=== PATIENT | female | born 1950 | race Caucasian/White ===

== ENCOUNTER 2017-12-28 14:15 | Outpatient (CLI) | payer OTHER | END 2017-12-28 14:31 | disposition home or self-care (01) | LOC: TOM 14:15 | DX: F01.50 Vascular dementia, unspecified severity, without behavioral disturbance, psychotic disturbance, mood disturbance, and anxiety (principal) ==

== ENCOUNTER 2018-01-03 10:44 | Outpatient (CLI) | payer OTHER | END 2018-01-03 10:57 | disposition home or self-care (01) | LOC: NUCLEAR 10:44 | DX: I65.23 Occlusion and stenosis of bilateral carotid arteries (principal) ==

== ENCOUNTER 2018-06-17 13:44 | Outpatient (CLI) | payer OTHER | END 2018-06-17 14:17 | disposition home or self-care (01) | LOC: NUCLEAR 13:44 | DX: M81.0 Age-related osteoporosis without current pathological fracture (principal) ==

== ENCOUNTER 2019-02-06 14:07 | Outpatient (CLI) | payer OTHER ==
[~2019-02-06] VITALS: Ht 165.1 cm; Wt 108.9 kg
== END 2019-02-06 14:25 | disposition home or self-care (01) ==
LOC: OFIC 805 14:07
DX: J32.8 Other chronic sinusitis (principal); R09.81 Nasal congestion; J34.89 Other specified disorders of nose and nasal sinuses; R68.89 Other general symptoms and signs; R05 Cough; R49.0 Dysphonia

== ENCOUNTER 2019-02-14 13:58 | Outpatient (CLI) | payer OTHER | END 2019-02-14 14:09 | disposition home or self-care (01) | LOC: TOM 13:58 | DX: J32.8 Other chronic sinusitis (principal) ==

== ENCOUNTER 2019-03-08 07:32 | Outpatient (CLI) | payer OTHER ==
[~2019-03-08] VITALS: Ht 152.4 cm; Wt 108.9 kg
== END 2019-03-08 13:51 | disposition home or self-care (01) ==
LOC: OFIC 805 07:32
DX: J34.2 Deviated nasal septum (principal); J31.0 Chronic rhinitis; J34.1 Cyst and mucocele of nose and nasal sinus; C44.40 Unspecified malignant neoplasm of skin of scalp and neck; E04.1 Nontoxic single thyroid nodule

== ENCOUNTER 2019-03-20 07:44 | Outpatient (CLI) | payer OTHER | END 2019-03-20 07:46 | disposition home or self-care (01) | LOC: SONOGRAMA 07:44 | DX: E04.1 Nontoxic single thyroid nodule (principal) ==

== ENCOUNTER 2019-04-26 11:08 | Outpatient (CLI) | payer OTHER | END 2019-04-26 12:28 | disposition home or self-care (01) | LOC: SONOGRAMA 11:08 | DX: E04.1 Nontoxic single thyroid nodule (principal) ==

== ENCOUNTER 2019-04-28 09:36 | Outpatient (CLI) | payer OTHER | END 2019-04-28 09:38 | disposition home or self-care (01) | LOC: TOM 09:36 | DX: E04.1 Nontoxic single thyroid nodule (principal); E03.8 Other specified hypothyroidism | CPT/HCPCS: 70491; Q9965 ==

== ENCOUNTER 2019-05-11 08:44 | Outpatient (CLI) | payer OTHER | END 2019-05-11 08:48 | disposition home or self-care (01) | LOC: RX STUDY 08:44 | DX: R13.19 Other dysphagia (principal); M72.2 Plantar fascial fibromatosis; E04.1 Nontoxic single thyroid nodule ==

== ENCOUNTER 2019-05-29 10:00 | Outpatient (CLI) | payer OTHER | END 2019-05-29 10:04 | disposition home or self-care (01) | LOC: NUCLEAR 10:00 | DX: I11.9 Hypertensive heart disease without heart failure (principal); I67.89 Other cerebrovascular disease; I73.9 Peripheral vascular disease, unspecified; I70.0 Atherosclerosis of aorta ==

== ENCOUNTER 2019-07-12 13:22 | Outpatient (CLI) | payer OTHER | END 2019-07-12 13:52 | disposition home or self-care (01) | LOC: RAD 13:22 | DX: M54.2 Cervicalgia (principal); M54.6 Pain in thoracic spine; M54.5 Low back pain ==

== ENCOUNTER 2019-08-10 14:39 | Outpatient (CLI) | payer OTHER ==
[~2019-08-10] VITALS: Ht 152.4 cm; Wt 110.2 kg
== END 2019-08-10 17:00 | disposition home or self-care (01) ==
LOC: OFIC 805 14:39
DX: J30.89 Other allergic rhinitis (principal); J32.8 Other chronic sinusitis; R09.81 Nasal congestion

== ENCOUNTER 2020-05-09 13:38 | Outpatient (CLI) | payer OTHER | END 2020-05-09 13:47 | disposition home or self-care (01) | LOC: MAMO-SONO 13:38 → SONOGRAMA 13:38 → MAMO-SONO 13:47 | DX: E04.2 Nontoxic multinodular goiter (principal); D44.0 Neoplasm of uncertain behavior of thyroid gland; Z12.31 Encounter for screening mammogram for malignant neoplasm of breast ==

== ENCOUNTER → 2020-05-13 | Outpatient (CLI) | payer OTHER | END | disposition home or self-care (01) | LOC: MRI 13:38 → SONOGRAMA 13:38 | PROVIDERS: ATTEND General Practice | DX: N60.02 Solitary cyst of left breast (principal); N60.01 Solitary cyst of right breast; N60.42 Mammary duct ectasia of left breast; Z12.31 Encounter for screening mammogram for malignant neoplasm of breast; N64.4 Mastodynia ==

== ENCOUNTER → 2020-12-26 12:06 | Outpatient (CLI) | payer OTHER | END | disposition home or self-care (01) | LOC: MAMO-SONO 05-09 13:45 → RAD 12:06 | PROVIDERS: ATTEND Physical Medicine & Rehabilitation | DX: M17.12 Unilateral primary osteoarthritis, left knee (principal); M54.2 Cervicalgia; M54.6 Pain in thoracic spine; M54.5 Low back pain ==

== ENCOUNTER 2021-05-21 09:13 | Outpatient (CLI) | payer OTHER | END 2021-05-21 09:14 | disposition home or self-care (01) | LOC: NUCLEAR 09:13 | PROVIDERS: ATTEND Internal Medicine Cardiovascular Disease | DX: I65.21 Occlusion and stenosis of right carotid artery (principal); G45.1 Carotid artery syndrome (hemispheric) ==

== ENCOUNTER 2021-06-03 11:09 | Outpatient (CLI) | payer OTHER | END 2021-06-03 11:20 | disposition home or self-care (01) | LOC: MAMO-SONO 11:09 | DX: N64.4 Mastodynia (principal); Z12.31 Encounter for screening mammogram for malignant neoplasm of breast; R22.1 Localized swelling, mass and lump, neck; E34.8 Other specified endocrine disorders ==

== ENCOUNTER 2021-06-03 13:47 | Outpatient (CLI) | payer OTHER | END 2021-06-03 13:51 | disposition home or self-care (01) | LOC: NUCLEAR 13:47 | PROVIDERS: ATTEND Internal Medicine Cardiovascular Disease | DX: M85.89 Other specified disorders of bone density and structure, multiple sites (principal); Z13.820 Encounter for screening for osteoporosis ==

== ENCOUNTER 2021-07-15 11:49 | Outpatient (CLI) | payer OTHER | END 2021-07-15 12:00 | disposition home or self-care (01) | LOC: LAB 11:49 | PROVIDERS: ATTEND Internal Medicine Cardiovascular Disease | DX: I11.9 Hypertensive heart disease without heart failure (principal) ==

== ENCOUNTER 2021-07-17 10:24 | Outpatient (CLI) | payer OTHER | END 2021-07-17 10:51 | disposition home or self-care (01) | LOC: TOM 10:24 | PROVIDERS: ATTEND Internal Medicine Cardiovascular Disease | DX: I67.89 Other cerebrovascular disease (principal); I11.9 Hypertensive heart disease without heart failure | CPT/HCPCS: 70498; Q9965; 71275 ==

== ENCOUNTER 2021-09-05 09:43 | Outpatient (CLI) | payer OTHER | END 2021-09-05 09:45 | disposition home or self-care (01) | LOC: NUCLEAR 09:43 | PROVIDERS: ATTEND Internal Medicine Cardiovascular Disease | DX: I73.9 Peripheral vascular disease, unspecified (principal) ==

== ENCOUNTER 2021-09-08 10:58 | Outpatient (CLI) | payer OTHER | END 2021-09-08 11:04 | disposition home or self-care (01) | LOC: SONOGRAMA 10:58 | PROVIDERS: ATTEND Internal Medicine Cardiovascular Disease | DX: E04.1 Nontoxic single thyroid nodule (principal) ==

== ENCOUNTER 2021-11-20 09:19 | Outpatient (CLI) | payer OTHER | END 2021-11-20 09:21 | disposition home or self-care (01) | LOC: SONOGRAMA 09:19 | PROVIDERS: ATTEND Pathology Anatomic Pathology & Clinical Pathology | DX: E04.9 Nontoxic goiter, unspecified (principal) ==

== ENCOUNTER 2021-11-25 12:39 | Outpatient (CLI) | payer OTHER | END 2021-11-25 12:47 | disposition home or self-care (01) | LOC: SONOGRAMA 12:39 | PROVIDERS: ATTEND Internal Medicine | DX: N18.30 Chronic kidney disease, stage 3 unspecified (principal) ==

== ENCOUNTER 2022-01-27 14:30 | Emergency (ER) | payer OTHER ==
[~2022-01-27] VITALS: Ht 165.1 cm; Wt 108.9 kg
[2022-01-27] MEDS ORDERED: GLIPIZIDE XL2.5 MG PO (14:42)
[2022-01-27] MEDS ORDERED: AVAPRO300 MG PO (14:42)
[2022-01-27] MEDS ORDERED: PLAVIX75 MG PO (15:30)
== END 2022-01-27 19:27 | disposition home or self-care (01) ==
LOC: ER 14:30
DX: M77.8 Other enthesopathies, not elsewhere classified (principal); Z88.0 Allergy status to penicillin; Z88.6 Allergy status to analgesic agent; Z86.73 Personal history of transient ischemic attack (TIA), and cerebral infarction without residual deficits; Z79.84 Long term (current) use of oral hypoglycemic drugs; E11.40 Type 2 diabetes mellitus with diabetic neuropathy, unspecified

== ENCOUNTER 2022-06-02 09:55 | Outpatient (CLI) | payer OTHER ==
[~2022-06-02 09:55] MED LIST: AVAPRO300 MG PO; GLIPIZIDE XL2.5 MG PO; PLAVIX75 MG PO
== END 2022-06-02 10:10 | disposition home or self-care (01) ==
LOC: RAD 09:55
PROVIDERS: ATTEND Otolaryngology
DX: J11.08 Influenza due to unidentified influenza virus with specified pneumonia (principal)

== ENCOUNTER 2023-09-15 08:31 | Outpatient (CLI) | payer OTHER | END 2023-09-15 08:45 | disposition home or self-care (01) | LOC: MAMO-SONO 08:31 | PROVIDERS: ATTEND Internal Medicine | DX: N64.4 Mastodynia (principal); R92.8 Other abnormal and inconclusive findings on diagnostic imaging of breast; Z12.31 Encounter for screening mammogram for malignant neoplasm of breast ==

== ENCOUNTER 2023-12-09 16:04 | Outpatient (CLI) | payer OTHER | END 2023-12-09 16:14 | disposition home or self-care (01) | LOC: SONOGRAMA 16:04 | PROVIDERS: ATTEND Pathology Anatomic Pathology & Clinical Pathology | DX: D44.0 Neoplasm of uncertain behavior of thyroid gland (principal); E04.2 Nontoxic multinodular goiter ==

== ENCOUNTER 2024-03-15 14:11 | Outpatient (CLI) | payer OTHER | END 2024-03-15 14:32 | disposition home or self-care (01) | LOC: RAD 14:11 | PROVIDERS: ATTEND Internal Medicine | DX: S80.912A Unspecified superficial injury of left knee, initial encounter (principal); S99.912A Unspecified injury of left ankle, initial encounter; M79.672 Pain in left foot ==

== ENCOUNTER 2024-08-03 13:14 | Outpatient (CLI) | payer OTHER ==
[~2024-08-03 13:14] MED LIST changes: +DOLOGESIC 500-1 EACH PO; +FEXMID7.5 MG PO
== END 2024-08-03 13:18 | disposition home or self-care (01) ==
LOC: MRI 13:14
PROVIDERS: ATTEND Physical Medicine & Rehabilitation
DX: M25.511 Pain in right shoulder (principal)
CPT/HCPCS: 73220; Q9965; 73221